=== PATIENT | female | born 1990 | race Two or more races ===

== ENCOUNTER 2018-05-05 16:44 | Emergency (ER) | payer SELFPAY ==
--- NOTE | 2018-05-05 17:31 | ER Document Report ---
ED Skin Rash/Insect Bite/Abscs - General Chief Complaint: Insect Bite Stated Complaint: INSECT BITE Time Seen by Provider: 05/05/18 17:21 Mode of Arrival: Ambulatory Notes: Patient is a 28-year-old female comes emergency room complaining of a mosquito bite to the right forearm. States that it occurred approximately 2 weeks ago and is not gotten any better. She has used Neosporin on it and also hydrocortisone cream and nothing seems to keep it on for a long period she states it is very itchy at times. And at times it uses. TRAVEL OUTSIDE OF THE [place] IN LAST 30 DAYS: No - HPI Patient complains to provider of: Possible insect bite Onset: Other - 2 weeks Onset/Duration: Sudden, Persistent, Worse Quality of pain: Throbbing, Other - Itchy Severity: Moderate Pain Level: 3 Skin Character: Drainage, Swelling, Tenderness, Thickening Skin Temperature: Warm Quality of rash: Itchy Relieved by: Denies Similar symptoms previously: No Recently seen / treated by doctor: No - Related Data Allergies/Adverse Reactions: No Known Allergies Allergy (Verified 05/05/18 16:45) Past Medical History - General Information source: Patient - Social History Smoking Status: Never Smoker Cigarette use (# per day): No Chew tobacco use (# tins/day): No Smoking Education Provided: No Frequency of alcohol use: None Drug Abuse: None Lives with: Family Family History: Reviewed & Not Pertinent - Immunizations Hx Diphtheria, Pertussis, Tetanus Vaccination: Yes Review of Systems - Review of Systems Constitutional: No symptoms reported EENT: No symptoms reported Cardiovascular: No symptoms reported Respiratory: No symptoms reported Gastrointestinal: No symptoms reported Genitourinary: No symptoms reported Female Genitourinary: No symptoms reported Musculoskeletal: No symptoms reported Skin: See HPI, Lesions, Lumps Hematologic/Lymphatic: No symptoms reported Neurological/Psychological: No symptoms reported Physical Exam - Vital signs Vitals: Temp Pulse Resp BP Pulse Ox 98.4 F 86 16 129/77 H 97 05/05/18 16:48 05/05/18 16:48 05/05/18 16:48 05/05/18 16:48 05/05/18 16:48 Interpretation: Normal - Notes Notes: Well-nourished well-developed female no apparent distress - General General appearance: Appears well, Alert - HEENT Head: Normocephalic, Atraumatic Eyes: Normal - Respiratory Respiratory status: No respiratory distress Chest status: Nontender Breath sounds: Normal. No: Rales, Rhonchi, Stridor, Wheezing Chest palpation: Normal - Cardiovascular Rhythm: Regular Heart sounds: Normal auscultation Murmur: No - Extremities General upper extremity: Tender, Normal strength, Normal temperature General lower extremity: Normal inspection, Nontender, Normal ROM, Normal strength Forearm: Tender, Other - Inspection of patient's right forearm shows there is an area on the top of the forearm at approximately mid way point is a little 1 cm x 1 cm area that appears raw. Slight discharge from it. There is a extended firm base below it. Nonfluctuant. Slightly warm and erythematous. The base sits directly below the center of the lesion. It extends out from the lesion approximately 1 cm. Course - Re-evaluation Re-evalutation: 05/05/18 17:31 The area of interest does appear to be a former insect bite that has morphed into a lesion with a firm base beneath it. Appears that it may have been a early abscess until she started any medications to it. Now it is kind of stagnant. We will put patient on Bactroban cream and we will cover her with some Bactrim for 7 days. - Vital Signs Vital signs: Temp Pulse Resp BP Pulse Ox 98.4 F 86 16 129/77 H 97 05/05/18 16:48 05/05/18 16:48 05/05/18 16:48 05/05/18 16:48 05/05/18 16:48 Discharge - Discharge Clinical Impression: Cellulitis of right forearm Condition: Stable Disposition: HOME, SELF-CARE Instructions: Cellulitis ([facility]) Additional Instructions: Home and rest. Medications prescribed. When working keep area covered. Apply the Bactroban ointment 3 times a day. As we discussed if the ointment is too much just do not get it. At that point continue with the Neosporin or triple antibiotic. Should you have any concerns or problems return to ER for recheck. If by chance the medications do not affect it probably need to follow-up with your primary care provider to get a referral to dermatology. Prescriptions: Mupirocin [Bactroban 2% Ointment 22 gm] 1 applic TP TID #1 tube Sulfamethoxazole/Trimethoprim [Bactrim Ds Tablet] 1 each PO BID #14 tablet Referrals: [facility],NO [Primary Care Provider] - Follow up as needed
[2018-05-05 18:14] VITALS: BP 105/70
== END 2018-05-05 18:16 | disposition home or self-care (01) ==
LOC: ER 16:44
DX: S50.861A Insect bite (nonvenomous) of right forearm, initial encounter (principal); L03.113 Cellulitis of right upper limb; W57.XXXA Bitten or stung by nonvenomous insect and other nonvenomous arthropods, initial encounter
CPT/HCPCS: 99281

== ENCOUNTER 2019-01-04 08:36 | Emergency (ER) | payer SELFPAY ==
--- NOTE | 2019-01-04 09:56 | ER Document Report ---
HPI - HPI Time Seen by Provider: 01/04/19 09:37 Pain Level: 4 Context: Patient is a 28-year-old female presents emergency department with a chief complaint of a sore throat. She states that she has had her symptoms for the past 3 days and had fevers for the past 2 nights. She states it hurts to swallow. She has been taking Tylenol for her fever and sore throat. Her last dose was at 5:00 morning. She denies any past medical history she does not take any medications. She states that she does have seasonal allergies, but does not take any medications for her seasonal allergies. Denies any sick contacts. - ROS Systems Reviewed and Negative: Yes All other systems reviewed and negative - CONSTITUTIONAL Constitutional: DENIES: Fever, Chills - EENT EENT: REPORTS: Sore Throat, Nasal Drainage-Clear, Congestion. DENIES: Ear Pain - CARDIOVASCULAR Cardiovascular: DENIES: Chest pain - RESPIRATORY Respiratory: DENIES: Trouble Breathing, Coughing - REPRODUCTIVE Reproductive: DENIES: : Past Medical History - Social History Smoking Status: Unknown if Ever Smoked Family History: Reviewed & Not Pertinent Renal/ Medical History: Denies: Hx Peritoneal Dialysis - Immunizations Hx Diphtheria, Pertussis, Tetanus Vaccination: Yes Vertical Provider Document - CONSTITUTIONAL Agree With Documented VS: Yes Exam Limitations: No Limitations General Appearance: No Apparent Distress - INFECTION CONTROL TRAVEL OUTSIDE OF THE [place] IN LAST 30 DAYS: No - HEENT HEENT: Atraumatic, Normocephalic, PERRLA, Pharyngeal Tenderness, Pharyngeal Erythema. negative: Conjuctival Injection, Pharyngeal Exudate, Tympanic Membrane Red, Tympanic Membrane Bulging - NECK Neck: Normal Inspection, Supple. negative: Lymphadenopathy-Left, Lymphadenopathy-Right - RESPIRATORY Respiratory: Breath Sounds Normal, No Respiratory Distress - CARDIOVASCULAR Cardiovascular: Regular Rate, Regular Rhythm Pulses: Normal: Radial - MUSCULOSKELETAL/EXTREMETIES Musculoskeletal/Extremeties: FROM - NEURO Level of Consciousness: Awake, Alert, Appropriate - DERM Integumentary: Warm, Dry, No Rash Course - Re-evaluation Re-evalutation: 01/04/19 10:34 Patient's rapid strep test is negative at this time. She will receive a dose of Decadron here in the emergency department. She does have edema and erythema noted to her nasal mucosa. I have instructed her to start Flonase and cetiri zine. She is in agreement with this plan. She will follow-up with the primary care provider. Uvula is midline, I do not suspect a peritonsillar abscess. I do not suspect Franko's angina, or any life-threatening etiology at this time. Patient's airway is patent. Verbal discharge instructions were given to the patient. They verbalized understanding. They are stable for discharge. - Vital Signs Vital signs: Temp Pulse Resp BP Pulse Ox 97.5 F 66 18 118/82 97 01/04/19 08:44 01/04/19 08:44 01/04/19 08:44 01/04/19 08:44 01/04/19 08:44 Discharge - Discharge Clinical Impression: Sore throat Condition: Stable Disposition: HOME, SELF-CARE Instructions: Sore Throat ([facility]) Additional Instructions: You are seen today in the emergency department for sore throat and a fever. At this time, your strep test is negative. It has been sent for culture. You will be called if it is positive. In the meantime, start Flonase and cetirizine to help with your symptoms. Please continue ibuprofen 600 mg and acetaminophen 1000 mg every 6 hours for your pain. Please follow-up with the primary care provider in regards to this visit. Prescriptions: Cetirizine HCl [All Day Allergy] 10 mg PO DAILY #30 tablet Fluticasone Propionate [Flonase Nasal [place] 50 Mcg/[place] 16 gm] 2 sprays NASL DAILY #1 inhaler Forms: Return to Work
[2019-01-04] MEDS ORDERED: DEXAMETHASONE SOD PHOS INJ 10 MG/1 ML VIAL IM ONE (10:40)
[2019-01-04 10:45] VITALS: BP 124/85
== END 2019-01-04 10:48 | disposition home or self-care (01) ==
LOC: ER 08:36
DX: J02.9 Acute pharyngitis, unspecified (principal); R50.9 Fever, unspecified; R09.89 Other specified symptoms and signs involving the circulatory and respiratory systems
CPT/HCPCS: 99283; 96372; 87070; 87880; J1100